=== PATIENT | female | born 1935 | race Caucasian/White ===

== ENCOUNTER 2018-01-07 12:27 | Emergency (ER) | payer OTHER ==
[~2018-01-07] VITALS: Ht 157.5 cm; Wt 87.0 kg
[~2018-01-07 12:27] MED LIST: ASPI81TA; ENAL20TA81 PO; HYDR-2768 PO; NOVO7030P2 SQ; OMEP20CA5 PO; POTA-243 PO; SIMV40TA PO; TOPR100T15 PO
[2018-01-07 12:36] VITALS: BP 150/67; PULSE 78; RESP 16; TEMP 97.8; O2SAT 98
--- NOTE | 2018-01-07 13:24 | PD ---
HPI Chief Complaint: Skin Problem Time Seen by Provider: 13:21 Travel History International Travel<30 days: No Contact w/Intl Traveler<30days: No Traveled to known affect area: No History of Present Illness HPI Patient complains of about a week long history of redness to the right lower extremity and now starting left lower extremity rash over the last 2 days despite being on Keflex for the past 4 days. Patient states that she suffers from swelling to her legs intermittently but denies any congestive heart failure or liver failure or kidney failure history. Only states that she has mild kidney disease from her diabetes. Patient was made aware that hypothyroidism can sometimes cause nonpitting edema to her lower extremities. Patient states allergy to sulfa, codeine Past medical history of hypothyroid, hearing problems, Mnire's disease, first- degree AV block, diverticulosis, GERD, hypertension, hypercholesterolemia, and diabetes PFSH Past Medical History Cancer: No Cardiovascular Problems: Yes (1ST DEGREE AV BLOCK) High Cholesterol: Yes Diabetes: Yes Genitourinary: Yes (INCONTINENCE) Hepatitis: No Hiatal Hernia: No Hypertension: Yes Immune Disorder: Yes Musculoskeletal: Yes (JOINT PAIN, HIPS, BACK AND KNEES) Neurologic: Yes (MENIERE'S DISEASE) Psychiatric: No Reproductive: No Respiratory: No Thyroid Disease: Yes (TUMOR BEHIND THYROID REMOVED) ?: Not Past Surgical History Ear Surgery: Yes (EAR DRUM REPAIR) 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) Pacemaker: No Other Surgery: Yes (TUMOR REMOVED FROM THYROID) Social History Alcohol Use: No Tobacco Use: No Substance Use: No Allergies-Medications (Allergen,Severity, Reaction): Coded Allergies: Sulfa (Sulfonamide Antibiotics) (Verified Allergy, Severe, HIVES, 01/07/18) codeine (Verified Allergy, Severe, VOMITING, 01/07/18) Reported Meds & Prescriptions Reported Meds & Active Scripts Active Reported Effer-K (Potassium Bicarbonate-Citric Acid) 20 Meq Tab 1 Tab PO DAILY Aspirin 325 Mg Tab 325 Mg PO DAILY Baclofen 10 Mg Tab 10 Mg PO TID Montelukast (Montelukast Sodium) 10 Mg Tab 10 Mg PO HS Gabapentin 100 Mg Cap 100 Mg PO TID Sertraline (Sertraline HCl) 50 Mg Tab 50 Mg PO DAILY Omeprazole 20 Mg Tab 20 Mg PO DAILY Simvastatin 40 Mg Tab 40 Mg PO HS Ventolin Hfa 18 GM Inh (Albuterol Sulfate) 90 Mcg/Act Aer 2 Puff INH Q6H PRN Meclizine (Meclizine HCl) 25 Mg Tab 25 Mg PO TID PRN Fluticasone Nasal [place] 50 Mcg/Act Naspr 50 Mcg EACH NARE DAILY 50 mcg/spray Hydrochlorothiazide 25 Mg Tab 25 Mg PO DAILY Amlodipine (Amlodipine Besylate) 5 Mg Tab 5 Mg PO DAILY Enalapril (Enalapril Maleate) 20 Mg Tab 20 Mg PO BID Cephalexin 500 Mg Cap 500 Mg PO Q12H Review of Systems Except as stated in HPI: all other systems reviewed are Neg General / Constitutional: No: Fever Eyes: No: Visual changes HENT: No: Headaches Cardiovascular: No: Chest Pain or Discomfort Respiratory: No: Shortness of Breath Gastrointestinal: No: Abdominal Pain Genitourinary: No: Dysuria Musculoskeletal: No: Pain Skin: Positive Rash Neurologic: No: Weakness Psychiatric: No: Depression Endocrine: No: Polydipsia Hematologic/Lymphatic: No: Easy Bruising Physical Exam Narrative GENERAL: SKIN: Warm and dry. HEAD: Atraumatic. Normocephalic. EYES: Pupils equal and round. No scleral icterus. No injection or drainage. ENT: No nasal bleeding or discharge. Mucous membranes pink and moist. NECK: Trachea midline. No JVD. CARDIOVASCULAR: Regular rate and rhythm. RESPIRATORY: No accessory muscle use. Clear to auscultation. Breath sounds equal bilaterally. GASTROINTESTINAL: Abdomen soft, non-tender, nondistended. MUSCULOSKELETAL: Extremities without clubbing, cyanosis.... No obvious deformities. NEUROLOGICAL: Awake and alert. No obvious cranial nerve deficits. Motor grossly within normal limits. Five out of 5 muscle strength in the arms and legs. Normal speech. PSYCHIATRIC: Appropriate mood and affect; insight and judgment normal. Data Data Last Documented VS Vital Signs Date Time Temp Pulse Resp B/P (MAP) Pulse Ox O2 Delivery O2 Flow Rate FiO2 01/07/18 15:20 83 14 178/60 (99) 97 Room Air 01/07/18 12:36 97.8 Orders Orders Us Leg Venous Doppler Bilat (01/07/18 13:30) Basic Metabolic Panel (Bmp) (01/07/18 13:30) Complete Blood Count With Diff (01/07/18 13:30) Iv Access Insert/Monitor (01/07/18 13:30) Clindamycin Inj (Cleocin Inj) (01/07/18 13:30) Ed Discharge Order (01/07/18 16:24) Labs Laboratory Tests Test 01/07/18 13:50 White Blood Count 11.1 TH/MM3 Red Blood Count 4.60 MIL/MM3 Hemoglobin 13.3 GM/DL Hematocrit 40.3 % Mean Corpuscular Volume 87.5 FL Mean Corpuscular Hemoglobin 28.9 PG Mean Corpuscular Hemoglobin Concent 33.0 % Red Cell Distribution Width 13.7 % Platelet Count 298 TH/MM3 Mean Platelet Volume 7.9 FL Neutrophils (%) (Auto) 71.0 % Lymphocytes (%) (Auto) 15.9 % Monocytes (%) (Auto) 7.0 % Eosinophils (%) (Auto) 5.6 % Basophils (%) (Auto) 0.5 % Neutrophils # (Auto) 7.8 TH/MM3 Lymphocytes # (Auto) 1.8 TH/MM3 Monocytes # (Auto) 0.8 TH/MM3 Eosinophils # (Auto) 0.6 TH/MM3 Basophils # (Auto) 0.1 TH/MM3 CBC Comment DIFF FINAL Differential Comment Blood Urea Nitrogen 18 MG/DL Creatinine 0.88 MG/DL Random Glucose 215 MG/DL Calcium Level 9.6 MG/DL Sodium Level 134 MEQ/L Potassium Level 3.8 MEQ/L Chloride Level 98 MEQ/L Carbon Dioxide Level 30.0 MEQ/L Anion Gap 6 MEQ/L Estimat Glomerular Filtration Rate 62 ML/MIN [facility] Medical Decision Making Medical Screen Exam Complete: Yes Emergency Medical Condition: Yes Medical Record Reviewed: Yes Differential Diagnosis Cellulitis versus DVT versus abscess Narrative Course CBC shows no major leukocytosis, no anemia, normal platelet count, and no left shift. Chemistry shows normal electrolytes, normal kidney function. However hyperglycemia of 215 noted. No anion gap Ultrasound read by radiologist as negative for DVT but a +3 cm right popliteal cyst. Diagnosis Primary Impression: Bilateral lower leg cellulitis Patient Instructions: Cellulitis (ED), General Instructions Scripts Betamethasone Dipropionate Topical (Betamethasone Dipropionate Topical) 0.05% Cream 1 APPLIC TOPICAL BID for Dermatoses, #60 GM 3 Refills Prov: Isaac Kolb MD 01/07/18 Doxycycline Hyclate (Doxycycline Hyclate) 100 Mg Cap 100 MG PO BID for Infection, #28 CAP 0 Refills Prov: Isaac Kolb MD 01/07/18 Isaac Kolb MD Jan 07, 2018 13:24
[2018-01-07] MEDS ORDERED: CLINDAMYCIN INJ 600 MG in SODIUM CHLORIDE 0.9% INJ 100 ML IV ONE (13:30)
[2018-01-07] MEDS ORDERED: SERT-132 PO (13:37)
[2018-01-07] MEDS ORDERED: BACL10TA PO (13:37)
[2018-01-07] MEDS ORDERED: ASPI-183 PO (13:37)
[2018-01-07] MEDS ORDERED: EFFE20TA PO (13:37)
[2018-01-07] MEDS ORDERED: GABA100C4 PO (13:37)
[2018-01-07] MEDS ORDERED: MONT10TA4 PO (13:37)
[2018-01-07] MEDS ORDERED: OMEP20TA93 PO (13:37)
[2018-01-07] MEDS ORDERED: CEPH500C PO (13:37)
[2018-01-07] MEDS ORDERED: SIMV40TA PO (13:37)
[2018-01-07] MEDS ORDERED: FLUT50SP EACH NARE (13:37)
[2018-01-07] MEDS ORDERED: VENTAER INH (13:37)
[2018-01-07] MEDS ORDERED: AMLO5TAB2 PO (13:37)
[2018-01-07] MEDS ORDERED: ENAL20TA PO (13:37)
[2018-01-07] MEDS ORDERED: MECL-62 PO (13:37)
[2018-01-07] MEDS ORDERED: HYDR25TA5 PO (13:37)
[2018-01-07] MEDS ORDERED: NAPR500T2 PO (13:37)
[2018-01-07 14:00] LABS: AUTOMATED NEUTROPHIL # 7.8 TH/MM3 (1.8-7.7); BASOPHIL # 0.1 TH/MM3 (0-0.2); BASOPHIL % 0.5 % (0.0-2.0); EOSINOPHIL # 0.6 TH/MM3 (0-0.4); EOSINOPHIL % 5.6 % (0.0-4.0); HEMATOCRIT 40.3 % (35.0-46.0); HEMOGLOBIN 13.3 GM/DL (11.6-15.3); LYMPH % 15.9 % (9.0-44.0); LYMPHOCYTE # 1.8 TH/MM3 (1.0-4.8); MEAN CELL VOLUME 87.5 FL (80.0-100.0); MEAN CORPUSCULAR HEMOGLOBIN 28.9 PG (27.0-34.0); MEAN PLATELET VOLUME 7.9 FL (7.0-11.0); MONOCYTE # 0.8 TH/MM3 (0-0.9); PLATELET COUNT 298 TH/MM3 (150-450); RED CELL DISTRIBUTION WIDTH 13.7 % (11.6-17.2); WHITE BLOOD COUNT 11.1 TH/MM3 (4.0-11.0)
[2018-01-07 14:10] LABS: CALCIUM 9.6 MG/DL (8.5-10.1)
[2018-01-07 14:14] LABS: CREATININE 0.88 MG/DL (0.50-1.00)
--- NOTE | 2018-01-07 15:10 | RADRPT ---
EXAM DATE/TIME: 01/07/2018 14:28 [place] COMPARISON: No previous studies available for comparison. INDICATIONS : Deep vein thrombosis. MEDICAL HISTORY : PVD. Hypercholesterol. Hypertension. Diverticulosis. Colon polyp. GERD. Adrenal mass. CKD. Di abetic. SURGICAL HISTORY : Tumor removed behind thyroid. ENCOUNTER: Initial ACUITY: 1 day PAIN SCORE: 4/10 LOCATION: Bilateral leg. TECHNIQUE: Venous ultrasound of the left and right leg was performed from the inguinal ligament to the proximal calf. Real-time, color Doppler and spectral tracing, compression and augmentation techniques were us ed. FINDINGS: RIGHT LEG: There is normal compressibility of the deep venous system from the inguinal region to the proximal ca lf. No echogenic clot is seen in the lumen of the common femoral, femoral, popliteal, and posterior tibial veins. There is a normal response of the venous system to proximal and distal augmentation an d respiration. 3 cm popliteal cyst on the right LEFT LEG: There is normal compressibility of the deep venous system from the inguinal region to the proximal ca lf. No echogenic clot is seen in the lumen of the common femoral, femoral, popliteal, and posterior tibial veins. There is a normal response of the venous system to proximal and distal augmentation an d respiration. CONCLUSION: 1. 3 cm right popliteal cyst 2. Negative for deep venous thrombosis. Fernandez Bennett MD FACR on January 07, 2018 at 15:07 Board Certified Radiologist. This report was verified electronically.
[2018-01-07 15:20] VITALS: BP 178/60; PULSE 83; RESP 14; O2SAT 97
[2018-01-07] MEDS ORDERED: BETA0.052 TOPICAL (16:33)
[2018-01-07] MEDS ORDERED: DOXY100C PO (16:33)
[2018-01-07 16:45] VITALS: BP 202/88; PULSE 78; RESP 18; O2SAT 97
== END 2018-01-07 16:50 | disposition home or self-care (01) ==
LOC: PHED 12:27
DX: L03.116 Cellulitis of left lower limb (principal); L03.115 Cellulitis of right lower limb; E11.65 Type 2 diabetes mellitus with hyperglycemia; I10 Essential (primary) hypertension; M71.21 Synovial cyst of popliteal space [Baker], right knee; M79.89 Other specified soft tissue disorders
CPT/HCPCS: 80048; 85025; 93970; 96365